=== PATIENT | male | born 1985 | race African-American/Black ===

== ENCOUNTER 2023-10-21 21:20 | Day surgery (SDC) | payer MEDICAID, SELFPAY ==
--- NOTE | 2023-10-21 21:29 | ED.GENADULT ---
HPI - General Adult General Time Seen by Provider: 21:29 Date Seen: 10/21/23 Chief complaint: Sore Throat Stated complaint: swollen glands, left ear pain Time Seen by Provider: 10/21/23 21:22 Source: patient, RN notes reviewed and old records reviewed Mode of arrival: ambulatory Limitations: no limitations History of Present Illness HPI narrative: 38-year-old male who comes in today with left throat pain and swollen glands in the neck for the last 3 days. Has been taking [id number] medication for this. Pain with swallowing, pain with opening the mouth and hoarse voice as well. Subjective fever and has had chills. No vomiting. Pain with swallowing but is able to swallow. Related Data Home Medications ?Medication ?Instructions ?Recorded ?Confirmed No Known Home Medications 10/21/23 10/21/23 Allergies Allergy/AdvReac Type Severity Reaction Status Date / Time No Known Drug Allergies Allergy Verified 10/21/23 22:42 Exam Narrative: Exam Narrative: General: Well-developed and well-nourished, no acute distress Head: Atraumatic and normocephalic Eyes: Pupils are equal reactive, extraocular motions intact, conjunctiva clear ENT: External nose and ears are normal, trismus, marked swelling of the left soft palate and tonsil with displacement of the uvula, hoarse voice Neck: No midline cervical tenderness, full spontaneous range of motion the neck, trachea midline, left anterior cervical adenopathy Heart: Regular rate and rhythm no murmurs or thrills Lungs: Clear to auscultation bilaterally without wheezes or crackles Abdomen: Soft, nontender, nondistended with active bowel sounds Musculoskeletal: No tenderness, deformity, or edema Neurologic: Awake, alert, and oriented x3, no gross focal neurologic deficits, cranial nerves intact as tested Psych: Mood and affect are appropriate Skin: No rashes Const: Vital Signs, click to edit/add: Vital Signs - 24 hr 10/21/23 21:30 Temperature 97.8 F Pulse Rate [Pulse Oximeter] 102 H Respiratory Rate 22 Blood Pressure [Ri ght Upper Arm] 133/85 Pulse Oximetry 97 Oxygen Delivery Me thod Room Air Course Course ED Course: Patient seen examined, no prior records available for review. Patient presents today with left-sided neck pain and throat pain along with subjective chills. On exam, borderline tachycardia, appears uncomfortable, winces with swallowing and is hoarse. No respiratory difficulty or stridor. Swelling of the left tonsil and soft palate, examined symptoms most consistent with peritonsillar abscess. Labs ordered along with CT scan of the neck, [place]. Did contact Dr. Valencia, ENT who will follow when CT is done Reevaluation(s) Time of Reevaluation #1: 22:45 Reevaluation #1: CT scan of the neck and panel interpreted by me demonstrates fluid collection but left tonsil with soft tissue edema tracking inferiorly. Care discussed with Dr. Valencia, patient will go to OR for drainage. Patient is low risk for anesthesia complications based on prior medical history and exam today. Time of Reevaluation #2: 23:01 Reevaluation #2: Labs ordered and independently interpreted by me with mild leukocytosis, reassuring basic panel. Vital Signs Vital signs: Initial Vital Signs Respiratory Effort Normal 10/21/23 21:29 Respiratory Depth Normal 10/21/23 21:29 Respiratory Pattern Normal 10/21/23 21:29 Vital Signs Temperature 97.8 F 10/21/23 21:30 Pulse Rate 102 H 10/21/23 21:30 Respiratory Rate 22 10/21/23 21:30 Blood Pressure 133/85 10/21/23 21:30 Pulse Oximetry 97 10/21/23 21:30 Oxygen Delivery Method Room Air 10/21/23 21:30 Temperature 97.8 F 10/21/23 21:30 Pulse Rate 102 H 10/21/23 21:30 Respiratory Rate 22 10/21/23 21:30 Blood Pressure 133/85 10/21/23 21:30 Pulse Oximetry 97 10/21/23 21:30 Oxygen Delivery Method Room Air 10/21/23 21:30 Medications Administered Medications: Discontinued Medications Generic Name Dose Route Start Last Admin Trade Name Freq PRN Reason Stop Dose Admin Dexamethasone 10 mg 10/21/23 21:39 10/21/23 22:16 Dexamethasone 10 Mg/Ml Inj IVP 10/21/23 21:40 10 mg ONCE ONE Administration Hydromorphone HCl 0.5 mg 10/21/23 21:59 10/21/23 22:16 Hydromorphone 0.5 Mg/0.5 Ml Inj IVP 10/21/23 22:00 0.5 mg ONCE ONE Administration Piperacillin Sod/Tazobactam 100 mls @ 100 mls/hr 10/21/23 21:39 10/21/23 22:33 Sod 3.375 gm/ Sodium Chloride IVPB 10/21/23 21:40 Not Given ONCE ONE Ampicillin Sodium/Sulbactam 100 mls @ 200 mls/hr 10/21/23 21:47 10/21/23 22:32 Sodium 3 gm/ Sodium Chloride IVPB 10/21/23 21:48 Infused ONCE ONE Infusion Sodium Chloride 1,000 mls @ 1,000 mls/hr 10/21/23 22:00 10/21/23 22:58 0.9 % Sodium Chloride 1000 Ml IV 10/21/23 22:59 Infused .Q1H LAKSHMI Infusion Medical Decision Making Lab Data Labs: Lab Results 10/21/23 Range/Units 21:49 WBC 11.34 H (4.50-11.00) K/uL RBC 5.16 (4.30-5.90) m/uL Hgb 16.4 (13.5-17.5) gm/dL Hct 48.9 (37.0-53.0) % MCV 95 (80-100) fL MCH 32 (26-34) pg MCHC 34 (32-36) gm/dL RDW Coeff of Andres 11.8 (11.5-15.5) % Plt Count 318 (140-440) K/uL Neut % (Auto) 77.9 H (42.0-72.0) % Lymph % (Auto) 11.6 L (20-44) % [place] % (Auto) 8.5 (0.0-11.0) % Eos % (Auto) 1.3 (0.0-7.0) % Baso % (Auto) 0.4 (0.0-3.0) % Neut # (Auto) 8.80 H (1.7-7.0) K/uL Lymph # (Auto) 1.30 (0.90-2.90) K/uL [place] # (Auto) 1.00 H (0.00-0.90) K/UL Eos # (Auto) 0.10 (0.00-0.50) K/uL Baso # (Auto) 0.00 (0.00-0.30) K/uL Abs Immat Gran (auto) 0.00 (0.00-0.30) K/uL Imm/Tot Granulo (auto) 0.3 % Sodium 134 L (135-149) mmol/L Potassium 3.9 (3.6-5.1) mmol/L Chloride 99 (96-114) mmol/L Carbon Dioxide 28 (20-32) mmol/L Anion Gap 7 (7-15) mEq/L BUN 4 L (5-24) mg/dL Creatinine 0.8 (0.5-1.5) mg/dL Estimated Creat Clear 134.65 Estimated GFR 117 ml/min Glucose 121 H (60-115) mg/dL Calcium 9.4 (8.4-10.6) mg/dL Discharge Plan Discharge Clinical Impression: Abscess, peritonsillar Patient Disposition: XFER to OR Follow Up/Referrals: Provider,Not a Local [Primary Care Provider] -
[2023-10-21 21:30] VITALS: BP 133/85; PULSE 102; RESP 22; TEMP 36.6; O2SAT 97; BMI 30.7
--- NOTE | 2023-10-21 21:37 | CRLHL7_ITS ---
For Patients: As a result of the Century Cures Act, medical imaging exams and procedure reports are released immediately into your electronic medical record. You may view this report before your referring provider. If you have questions, please contact your health care provider. Indication: Peritonsillar abscess Technique: CT of the neck following 80 mL Isovue 370 IV contrast. Comparison: None Findings: Brain and orbits: Visualized portions demonstrate no acute abnormality. Sinuses and mastoids: Visualized portions demonstrate no acute abnormality. Internal Medicine Physician spaces: No significant abnormality appreciated. Oral cavity, floor of mouth, and base of tongue: No significant abnormality appreciated. Pharynx: Enlargement of the left tonsillar pillar with a 2.2 x 1.1 centimeter fluid collection and adjacent soft tissue edema. Larynx/hypopharynx: No significant abnormality appreciated. Submandibular and parotid spaces: No significant abnormality appreciated. Thyroid space: No significant abnormality appreciated. Lymph nodes: Reactive lymphadenopathy. Vascular structures: No significant abnormality appreciated. Bones: No significant abnormality appreciated. Upper chest: No significant abnormality appreciated. Impression: Left tonsillitis with a 2.2 centimeter peritonsillar abscess. Please note that all CT scans at this facility use dose modulation, iterative reconstruction, and/or weight-based dosing when appropriate to reduce radiation dose to as low as reasonably achievable. Dictated by Chalino Rees MD @ 10/21/2023 11:00:18 PM (Electronically Signed)
[2023-10-21 22:07] LABS: Basophils Percent Auto 0.4 % (0.0-3.0); Eosinophils Percent Auto 1.3 % (0.0-7.0); Hematocrit 48.9 % (37.0-53.0); Hemoglobin* 16.4 gm/dL (13.5-17.5); Immature Granulocytes Pct Auto 0.3 %; Lymphocytes Percent Auto 11.6 % (20-44); Mean Corpuscular HGB Conc 34 gm/dL (32-36); Mean Corpuscular Hemoglobin 32 pg (26-34); Mean Corpuscular Volume 95 fL (80-100); Monocytes Percent Auto 8.5 % (0.0-11.0); Neutrophils Percent Auto 77.9 % (42.0-72.0); Platelet Count* 318 K/uL (140-440); RDW Coefficient of Variation % 11.8 % (11.5-15.5); Red Blood Count 5.16 m/uL (4.30-5.90); White Blood Count* 11.34 K/uL (4.50-11.00)
[2023-10-21 22:11] LABS: Slide Review Reflex No
[2023-10-21] MEDS: HYDROmorphone 0.5 mg/0.5 ml inj IVP (22:16)
[2023-10-21] MEDS: dexAMETHasone 10 MG/ML inj IVP (22:16)
[2023-10-21] MEDS: 0.9 % SODIUM CHLORIDE 1000 ml 1,000 ML IV (22:16)
[2023-10-21] MEDS: AMPICILLIN/SULBACTAM 3 GM in 0.9 % SODIUM CHLORIDE Mini-bag 100 ML IVPB (22:16)
[2023-10-21 22:23] LABS: Chloride* 99 mmol/L (96-114)
[2023-10-21 22:24] LABS: Potassium* 3.9 mmol/L (3.6-5.1); Sodium* 134 mmol/L (135-149)
[2023-10-21 22:26] LABS: Creatinine* 0.8 mg/dL (0.5-1.5); Est. Creatinine Clearance* 134.65; Estimated Glomerular Filt Rate 117 ml/min
[2023-10-21 22:27] LABS: Anion Gap 7 mEq/L (7-15); Blood Urea Nitrogen* 4 mg/dL (5-24); Calcium* 9.4 mg/dL (8.4-10.6); Carbon Dioxide* 28 mmol/L (20-32); Glucose* 121 mg/dL (60-115)
[2023-10-21] MEDS: LACTATED RINGERS 1000 ML 1,000 ML 125 ML IV (23:26)
[2023-10-22] VITALS (16 sets, daily range): BP systolic 107–143; BP diastolic 54–100; PULSE 74–96; RESP 12–18; TEMP 36.5–36.7; O2SAT 94–100
--- NOTE | 2023-10-22 00:04 | P.ENTCN_ITS ---
HPI- ENT Consult Date of Consult Date Seen: 10/22/23 Patient: Other Consult date: 10/22/23 Requesting Physician: Other Primary Care Provider: Not a Local Provider Consult Narrative Reason for consult: Left peritonsillar abscess Narrative: Ye Reeves is a 38 year old male 3 day history of sore throat that has pr ogressed to odynophagia dysphagia and trismus. Was afebrile on presentation with mildly elevated white count. Meds Home Medications and Allergies Allergies Allergy/AdvReac Type Severity Reaction Status Date / Time No Known Drug Allergies Allergy Verified 10/21/23 22:42 Exam Narrative: Exam Narrative: Insert general muffled voice obvious pain with swallowing bulge left supra peritonsillar area hypopharynx larynx appear clear Const: Vital Signs, click to edit/add: Vital Signs - 24 hr 10/21/23 21:30 Temperature 97.8 F Pulse Rate [Pulse Oximeter] 102 H Respiratory Rate 22 Blood Pressure [Ri ght Upper Arm] 133/85 Pulse Oximetry 97 Oxygen Delivery Me thod Room Air Documenting provider has reviewed patient's vital signs: yes ENT-CN: Result Labs Labs: Short CBC 10/21/23 Range/Units 21:49 WBC 11.34 H (4.50-11.00) K/uL Hgb 16.4 (13.5-17.5) gm/dL Hct 48.9 (37.0-53.0) % Plt Count 318 (140-440) K/uL BMP 10/21/23 21:49 Sodium 134 L Potassium 3.9 Chloride 99 Carbon Dioxide 28 BUN 4 L Creatinine 0.8 Glucose 121 H Calcium 9.4 Assessment and Plan Assessment and plan (1) Abscess, peritonsillar: Status: Acute Plan Left peritonsillar abscess. Discussed options with patient of observation and IV medication antibiotics and steroids versus incision and drainage. I would favor incision and drainage based on size and repeated T of onset of abscess. Risks including recurrence anesthesia bleeding etc. were all reviewed. He understands wishes to proceed will schedule
--- NOTE | 2023-10-22 00:07 | W.PM.ENTPROC ---
Procedure Note Date of procedure: 10/22/23 Procedure: Preop diagnosis left peritonsillar abscess with patent airway, uvular hypertrophy Postoperative diagnosis same uvula is obviously involved with cellulitis Procedure incision drainage left peritonsillar abscess with amputation of lower 3rd of uvula to allow decompression Under general endotracheal anesthesia patient was prepped and draped usual fashion. The McIvor mouth gag was inserted the tongue retracted forward. The lower 3rd of the uvula was amputated to allow decompression. A needlepoint cautery was used to make an incision in the left supra tonsillar region. Dissection was carried down to the capsule. Blunt dissection was used to enter the abscess superiorly. Approximately 5 mL of pus was aspirated with suction and spontaneous exudate a mejia. This was cultured. The abscess cavity was irrigated. Bleeding was controlled with Coblation. The patient procedure well was taken recovery in satisfactory condition. Blood loss during procedure was approximately 25 mL or less. There were no complication Surgeon: Ti Valencia MD
--- NOTE | 2023-10-22 00:21 | P.ANES_ITS ---
Anesthesia Charges Start Date/Time Anesthesia Start Date: 10/22/23 Anesthesia Start Time: 23:45 Stop Date/Time Anesthesia Stop Date: 10/23/23 Anesthesia Stop Time: 00:17 Summary Emergency: RECREATION ATTENDANT
[2023-10-22] MEDS: OXYCODONE 1 MG/ML ORAL SOLN 5 MG PO (01:24)
[2023-10-22] MEDS: LACTATED RINGERS 1000 ML 1,000 ML 35 ML IV (01:26)
[2023-10-22] MEDS: IBUPROFEN 100 MG/5 ML SUSP 200 MG PO (02:16)
[2023-10-22] MEDS: 0.9 % SODIUM CHLORIDE 250 ml IV (04:15)
[2023-10-22] MEDS: AMPICILLIN/SULBACTAM 3 GM in 0.9 % SODIUM CHLORIDE Mini-bag 100 ML IVPB ×2 (04:19→09:57)
--- NOTE | 2023-10-22 12:18 | PC.NURSE ---
Discharge: Patient pleasant and cooperative, A&O. VSS, afebrile. SpO2 maintained above 90% on RA. Patient reports pain in his throat, declined PRN medication. IV removed with tip intact. Discharge instructions provided, all questions answered. Discharged to home at 1040.
== END 2023-10-22 10:40 | disposition home or self-care (01) ==
LOC: ED 23:04 → OR 23:11 → MEDSURG 10-22 01:09
PROVIDERS: Emergency Provider Family Medicine; Visit Provider Otolaryngology
PROC: 0C9PXZZ Drainage of Tonsils, External Approach (ICD-10-PCS; CPT 42700; principal; 2023-10-21 23:30)
DX: J36 Peritonsillar abscess (principal); K13.79 Other lesions of oral mucosa; R07.0 Pain in throat; R13.12 Dysphagia, oropharyngeal phase
CPT/HCPCS: 42140; 42700; 00170; 36415; 70491; 80048; 85025; 87070; 87075; 87076; 87186; 87205; 99140; 99284; 99285; A9270; J0295; J0330; J1100; J1170; J2250; J2405; J2704; J3010; J7030; J7050; J7120; Q9967

== ENCOUNTER 2024-01-04 21:25 | Observation (INO) | payer MEDICAID, SELFPAY ==
[2024-01-04 21:43] VITALS: BP 118/79; PULSE 94; RESP 20; TEMP 36.6; O2SAT 99
[2024-01-04 21:47] VITALS: O2SAT 97
--- NOTE | 2024-01-04 22:26 | ED_ITS ---
HPI - General Adult General Chief complaint: Sore Throat <Susana Dyson MD - Last Filed: 01/05/24 00:24> Stated complaint: Tonsil infection. <Susana Dyson MD - Last Filed: 01/05/24 00:24> Time Seen by Provider: 01/04/24 22:22 <Susana Dyson MD - Last Filed: 01/05/24 00:24> Source: patient <Susana Dyson MD - Last Filed: 01/05/24 00:24> Mode of arrival: ambulatory <Susana Dyson MD - Last Filed: 01/05/24 00:24> Limitations: no limitations <Susana Dyson MD - Last Filed: 01/05/24 00:24> History of Present Illness HPI narrative: 38-year-old male presenting today with sore throat and difficulty breathing. Patient states that he has had a sore throat for approximately 3 days and that yesterday he went to [facility] and was diagnosed with tonsillopharyngitis. 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 He comes in today with worsening pain in he feels like he is having a harder time breathing. He states that he has chills throughout the day, uncertain if he had an elevated temperature or not. He was able to eat earlier today. He denies any difficulty opening and closing his jaw. Patient has a history of peritonsillar abscess in October of this year that required drainage. <Susana Dyson MD - Last Filed: 01/05/24 00:24> Related Data Home medications: Home Medications ?Medication ?Instructions ?Recorded ?Confirmed No Known Home Medications 01/04/24 01/04/24 <Susana Dyson MD - Last Filed: 01/05/24 00:24> Allergies/adverse reactions: Allergies Allergy/AdvReac Type Severity Reaction Status Date / Time No Known Drug Allergies Allergy Verified 10/21/23 22:42 <Susana Dyson MD - Last Filed: 01/05/24 00:24> Review of Systems Status of ROS: Reports: 10 or more systems reviewed and unremarkable except as noted in History and below <Susana Dyson MD - Last Filed: 01/05/24 00:24> [facility] Social History: Social History service: No <Susana Dyson MD - Last Filed: 01/05/24 00:24> Exam Narrative: Exam Narrative: Well-nourished well-developed patient in no acute distress. Alert and oriented. Answers questions appropriately. Mood and affect are appropriate. Thoughts are goal oriented and rational. No tangential or magical thinking noted. Patient speaks in full sentences without needing to catch his breath. Voice sounds slightly congested but he is speaking and breathing without difficulty. HEENT: Normocephalic atraumatic. Pupils are equally round reactive to light. Extraocular muscles are intact. Conjunctivae are moist without any icterus noted. Moist mucous membranes. Posterior pharynx shows bilateral tonsillar swelling, uvula surgically absent. Neck is soft but tender on the left. Cardiovascular: Heart is regular rate and rhythm S1 and S2 are present without any murmurs. Lungs: Clear to auscultation bilaterally no wheezes rhonchi or rales are appreciated. Patient takes deep breaths without any discomfort. Skin: Well perfused, warm, dry, intact <Susana Dyson MD - Last Filed: 01/05/24 00:24> Const: Vital Signs, click to edit/add: Vital Signs - 24 hr 01/04/24 21:43 01/04/24 21:47 01/05/24 02:23 Temperature 97.9 F 97.9 F Pulse Rate [Pulse Oximeter] 94 86 Respiratory Rate 20 18 Blood Pressure [Ri ght Upper Arm] 118/79 109/73 Pulse Oximetry 99 97 96 Oxygen Delivery Me thod Room Air Room Air 01/05/24 04:27 Temperature 98.3 F Pulse Rate [Pulse Oximeter] 75 Respiratory Rate 16 Blood Pressure [Ri ght Upper Arm] 94/57 L Pulse Oximetry 99 Oxygen Delivery Me thod Room Air <Susana Dyson MD - Last Filed: 01/05/24 00:24> Vital Signs, click to edit/add: Vital Signs - 24 hr 01/04/24 21:43 01/04/24 21:47 01/05/24 02:23 Temperature 97.9 F 97.9 F Pulse Rate [Pulse Oximeter] 94 86 Respiratory Rate 20 18 Blood Pressure [Ri t Upper Arm] 118/79 109/73 Pulse Oximetry 99 97 96 Oxygen Delivery Me thod Room Air Room Air 01/05/24 04:27 Temperature 98.3 F Pulse Rate [Pulse Oximeter] 75 Respiratory Rate 16 Blood Pressure [Ri ght Upper Arm] 94/57 L Pulse Oximetry 99 Oxygen Delivery Me thod Room Air <Jasmina Maher MD - Last Filed: 01/05/24 07:34> Course Course ED Course: Reviewed the report from the CT that was done yesterday: 1. Findings most compatible with acute tonsillopharyngitis in the appropriate clinical setting. Notably, a 2.0 x 0.8 x 2.3 cm locule of fluid adjacent to the left palatine tonsil without significant rim enhancement, most compatible with phlegmon or developing abscess. No drainable abscess at this time. 2. Moderate narrowing of the oropharyngeal airway secondary to bilateral palatine tonsillar enlargement. 3. Bilateral cervical lymphadenopathy, worse on the left, likely reactive. IV was established and patient is given Unasyn and dexamethasone. At this time will start Unasyn q.6 hours. We will admit the patient for IV antibiotics. We will get an ENT consult in the morning. <Susana Dyson MD - Last Filed: 01/05/24 00:24> Reevaluation(s) Reevaluation #1: Dr. Valencia was updated by text. He will check in with the hospitalist. We now have nursing staff available and patient will be admitted for observation to the medical floor to continue Unasyn and medical management. No issues overnight. No airway compromise. - Dr. Maher <Jasmina Maher MD - Last Filed: 01/05/24 07:34> Vital Signs Vital signs: Initial Vital Signs Temperature 97.9 F 01/04/24 21:43 Temperature Source Temporal Artery Scan 01/04/24 21:43 Pulse Rate 94 01/04/24 21:43 Respiratory Rate 20 01/04/24 21:43 Blood Pressure 118/79 01/04/24 21:43 Blood Pressure Mean 92 01/04/24 21:43 Blood Pressure Position Sitting 01/04/24 21:43 Pulse Oximetry 99 01/04/24 21:43 Oxygen Delivery Method Room Air 01/04/24 21:43 Vital Signs Temperature 97.9 F 01/04/24 21:43 Pulse Rate 94 01/04/24 21:43 Respiratory Rate 20 01/04/24 21:43 Blood Pressure 118/79 01/04/24 21:43 Pulse Oximetry 99 01/04/24 21:43 Oxygen Delivery Method Room Air 01/04/24 21:43 Temperature 98.3 F 01/05/24 04:27 Pulse Rate 75 01/05/24 04:27 Respiratory Rate 16 01/05/24 04:27 Blood Pressure 94/57 L 01/05/24 04:27 Pulse Oximetry 99 01/05/24 04:27 Oxygen Delivery Method Room Air 01/05/24 04:27 <Susana Dyson MD - Last Filed: 01/05/24 00:24> Initial Vital Signs Temperature 97.9 F 01/04/24 21:43 Temperature Source Temporal Artery Scan 01/04/24 21:43 Pulse Rate 94 01/04/24 21:43 Respiratory Rate 20 01/04/24 21:43 Blood Pressure 118/79 01/04/24 21:43 Blood Pressure Mean 92 01/04/24 21:43 Blood Pressure Position Sitting 01/04/24 21:43 Pulse Oximetry 99 01/04/24 21:43 Oxygen Delivery Method Room Air 01/04/24 21:43 Vital Signs Temperature 97.9 F 01/04/24 21:43 Pulse Rate 94 01/04/24 21:43 Respiratory Rate 20 01/04/24 21:43 Blood Pressure 118/79 01/04/24 21:43 Pulse Oximetry 99 01/04/24 21:43 Oxygen Delivery Method Room Air 01/04/24 21:43 Temperature 98.3 F 01/05/24 04:27 Pulse Rate 75 01/05/24 04:27 Respiratory Rate 16 01/05/24 04:27 Blood Pressure 94/57 L 01/05/24 04:27 Pulse Oximetry 99 01/05/24 04:27 Oxygen Delivery Method Room Air 01/05/24 04:27 <Jasmina Maher MD - Last Filed: 01/05/24 07:34> Medications Administered Medications: Generic Name Dose Route Start Last Admin Trade Name Freq PRN Reason Stop Dose Admin Ampicillin Sodium/Sulbactam 100 mls @ 200 mls/hr 01/04/24 22:30 01/05/24 05:09 Sodium 3 gm/ Sodium Chloride IVPB Infused Q6H LAKSHMI Infusion Discontinued Medications Generic Name Dose Route Start Last Admin Trade Name Freq PRN Reason Stop Dose Admin Acetaminophen 1,000 mg 01/04/24 23:50 01/04/24 23:54 Acetaminophen 500 Mg Tablet PO 01/04/24 23:51 1,000 mg ONCE ONE Administration Dexamethasone 10 mg 01/04/24 22:24 01/04/24 23:02 Dexamethasone 4 Mg/Ml Vial IV 01/04/24 22:25 10 mg ONCE ONE Administration <Susana Dyson MD - Last Filed: 01/05/24 00:24> Generic Name Dose Route Start Last Admin Trade Name Freq PRN Reason Stop Dose Admin Ampicillin Sodium/Sulbactam 100 mls @ 200 mls/hr 01/04/24 22:30 01/05/24 05:09 Sodium 3 gm/ Sodium Chloride IVPB Infused Q6H LAKSHMI Infusion Discontinued Medications Generic Name Dose Route Start Last Admin Trade Name Freq PRN Reason Stop Dose Admin Acetaminophen 1,000 mg 01/04/24 23:50 01/04/24 23:54 Acetaminophen 500 Mg Tablet PO 01/04/24 23:51 1,000 mg ONCE ONE Administration Dexamethasone 10 mg 01/04/24 22:24 01/04/24 23:02 Dexamethasone 4 Mg/Ml Vial IV 01/04/24 22:25 10 mg ONCE ONE Administration <Jasmina Maher MD - Last Filed: 01/05/24 07:34> Medical Decision Making Lab Data Labs: Lab Results 01/04/24 Range/Units 23:00 WBC 11.42 H (4.50-11.00) K/uL RBC 5.05 (4.30-5.90) m/uL Hgb 15.7 (13.5-17.5) gm/dL Hct 46.3 (37.0-53.0) % MCV 92 (80-100) fL MCH 31 (26-34) pg MCHC 34 (32-36) gm/dL RDW Coeff of Andres 12.1 (11.5-15.5) % Plt Count 245 (140-440) K/uL Neut % (Auto) 72.8 H (42.0-72.0) % Lymph % (Auto) 16.3 L (20-44) % [place] % (Auto) 9.0 (0.0-11.0) % Eos % (Auto) 0.6 (0.0-7.0) % Baso % (Auto) 0.2 (0.0-3.0) % Neut # (Auto) 8.30 H (1.7-7.0) K/uL Lymph # (Auto) 1.90 (0.90-2.90) K/uL [place] # (Auto) 1.00 H (0.00-0.90) K/UL Eos # (Auto) 0.10 (0.00-0.50) K/uL Baso # (Auto) 0.00 (0.00-0.30) K/uL Abs Immat Gran (auto) 0.10 (0.00-0.30) K/uL Imm/Tot Granulo (auto) 1.1 % Sodium 137 (135-149) mmol/L Potassium 3.6 (3.6-5.1) mmol/L Chloride 100 (96-114) mmol/L Carbon Dioxide 28 (20-32) mmol/L Anion Gap 9 (7-15) mEq/L BUN 18 (5-24) mg/dL Creatinine 0.8 (0.5-1.5) mg/dL Estimated Creat Clear 134.65 Estimated GFR 117 ml/min Glucose 119 H (60-115) mg/dL Calcium 9.1 (8.4-10.6) mg/dL C-Reactive Protein 3.6 H (0.5-1.0) mg/dL SARS-CoV-2 (PCR) Negative SARS-CoV-2 (Negative) Monoscreen Negative (Negative) Influenza Type A (PCR) Negative PCR FLU A (Negative) Influenza Type B (PCR) Negative PCR FLU B (Negative) <Susana Dyson MD - Last Filed: 01/05/24 00:24> Lab Results 01/04/24 Range/Units 23:00 WBC 11.42 H (4.50-11.00) K/uL RBC 5.05 (4.30-5.90) m/uL Hgb 15.7 (13.5-17.5) gm/dL Hct 46.3 (37.0-53.0) % MCV 92 (80-100) fL MCH 31 (26-34) pg MCHC 34 (32-36) gm/dL RDW Coeff of Andres 12.1 (11.5-15.5) % Plt Count 245 (140-440) K/uL Neut % (Auto) 72.8 H (42.0-72.0) % Lymph % (Auto) 16.3 L (20-44) % [place] % (Auto) 9.0 (0.0-11.0) % Eos % (Auto) 0.6 (0.0-7.0) % Baso % (Auto) 0.2 (0.0-3.0) % Neut # (Auto) 8.30 H (1.7-7.0) K/uL Lymph # (Auto) 1.90 (0.90-2.90) K/uL [place] # (Auto) 1.00 H (0.00-0.90) K/UL Eos # (Auto) 0.10 (0.00-0.50) K/uL Baso # (Auto) 0.00 (0.00-0.30) K/uL Abs Immat Gran (auto) 0.10 (0.00-0.30) K/uL Imm/Tot Granulo (auto) 1.1 % Sodium 137 (135-149) mmol/L Potassium 3.6 (3.6-5.1) mmol/L Chloride 100 (96-114) mmol/L Carbon Dioxide 28 (20-32) mmol/L Anion Gap 9 (7-15) mEq/L BUN 18 (5-24) mg/dL Creatinine 0.8 (0.5-1.5) mg/dL Estimated Creat Clear 134.65 Estimated GFR 117 ml/min Glucose 119 H (60-115) mg/dL Calcium 9.1 (8.4-10.6) mg/dL C-Reactive Protein 3.6 H (0.5-1.0) mg/dL SARS-CoV-2 (PCR) Negative SARS-CoV-2 (Negative) Monoscreen Negative (Negative) Influenza Type A (PCR) Negative PCR FLU A (Negative) Influenza Type B (PCR) Negative PCR FLU B (Negative) <Jasmina Maher MD - Last Filed: 01/05/24 07:34> Discharge Plan Discharge Clinical Impression: Abscess, peritonsillar <Susana Dyson MD - Last Filed: 01/05/24 00:24> Patient Disposition: Admitted As Observation <Susana Dyson MD - Last Filed: 01/05/24 00:24> Condition: Stable <Susana Dyson MD - Last Filed: 01/05/24 00:24>
[2024-01-04] MEDS: AMPICILLIN/SULBACTAM 3 GM in 0.9 % SODIUM CHLORIDE Mini-bag 100 ML IVPB (23:01)
[2024-01-04] MEDS: dexAMETHasone 4 MG/ML VIAL 10 MG IV (23:02)
[2024-01-04 23:08] LABS: Basophils Percent Auto 0.2 % (0.0-3.0); Eosinophils Percent Auto 0.6 % (0.0-7.0); Hematocrit 46.3 % (37.0-53.0); Hemoglobin* 15.7 gm/dL (13.5-17.5); Immature Granulocytes Pct Auto 1.1 %; Lymphocytes Percent Auto 16.3 % (20-44); Mean Corpuscular HGB Conc 34 gm/dL (32-36); Mean Corpuscular Hemoglobin 31 pg (26-34); Mean Corpuscular Volume 92 fL (80-100); Neutrophils Percent Auto 72.8 % (42.0-72.0); Platelet Count* 245 K/uL (140-440); RDW Coefficient of Variation % 12.1 % (11.5-15.5); Red Blood Count 5.05 m/uL (4.30-5.90); White Blood Count* 11.42 K/uL (4.50-11.00)
[2024-01-04 23:10] LABS: Mono Screen* Negative (Negative)
[2024-01-04 23:13] LABS: Slide Review Reflex No
[2024-01-04 23:19] LABS: Chloride* 100 mmol/L (96-114); Potassium* 3.6 mmol/L (3.6-5.1); Sodium* 137 mmol/L (135-149)
[2024-01-04 23:22] LABS: Creatinine* 0.8 mg/dL (0.5-1.5); Est. Creatinine Clearance* 134.65; Estimated Glomerular Filt Rate 117 ml/min
[2024-01-04 23:23] LABS: Anion Gap 9 mEq/L (7-15); Blood Urea Nitrogen* 18 mg/dL (5-24); Calcium* 9.1 mg/dL (8.4-10.6); Carbon Dioxide* 28 mmol/L (20-32); Glucose* 119 mg/dL (60-115)
[2024-01-04 23:26] LABS: C Reactive Protein* 3.6 mg/dL (0.5-1.0)
[2024-01-04 23:44] LABS: PCR FLU A Negative PCR FLU A (Negative); PCR FLU B Negative PCR FLU B (Negative); SARS PCR* Negative SARS-CoV-2 (Negative)
[2024-01-04] MEDS: ACETAMINOPHEN 500 MG TABLET 1000 MG PO (23:54)
[2024-01-05] VITALS (9 sets, daily range): BP systolic 94–120; BP diastolic 57–86; PULSE 68–86; RESP 14–20; TEMP 36.5–36.9; O2SAT 96–100; BMI 18.7
[2024-01-05] MEDS: AMPICILLIN/SULBACTAM 3 GM in 0.9 % SODIUM CHLORIDE Mini-bag 100 ML IVPB ×4 (04:40→22:41)
--- NOTE | 2024-01-05 05:03 | PC.NURSE ---
Pt states he is feeling much better compared to when he first came in, eating jello in bed.
--- NOTE | 2024-01-05 07:45 | ED.NURSE ---
Patient asleep on cot, rousable to voice. VSS. Patient denies needs at present. Significant other at bedside. Understand plan for admission, no questions/concerns.
--- NOTE | 2024-01-05 07:50 | ED.NURSE ---
Report to [facility]. Patient accepted to [id number].
[2024-01-05] MEDS: SODIUM CHLORIDE 0.9 % (FLUSH) 10 ML SYRINGE 5 ML IVF ×2 (10:14→22:41)
--- NOTE | 2024-01-05 15:19 | P.IMHP_ITS ---
Hospitalist- H&P: HPI History of Present Illness Date Seen: 01/05/24 Chief complaint: Tonsil infection. Narrative: Ye Reeves is a 38 year old male admitted to the hospital with recurrent left peritonsillar abscess. Patient reports developing a sore throat a couple days ago. He went to [facility] in [place] where he was diagnosed with an early peritonsillar abscess and received IV antibiotics and a prescription for clindamycin and Medrol Dosepak. It was not felt to be a drainable abscess at that time. He he did not fill the prescription for antibiotic and presented to our emergency room last night with worsening throat pain. It has been painful to swallow. Last night he felt like he was choking because of his sore throat. He otherwise reports feeling well. October of 2023 he had a similar problem in the left tonsil. He underwent I&D with Dr. Valencia at that time. He got better after that until 2 days ago. Review of Systems Narrative: Other than his sore throat he reports doing well. [facility] Medical History (Updated 01/05/24 @ 15:24 by Abel Mccoy MD) Abscess, peritonsillar ?J36 - Peritonsillar abscess (ICD-10) Surgical History (Updated 01/05/24 @ 15:28 by Abel Mccoy MD) H/O peritonsillar abscess drainage ?Z98.890 - Other specified postprocedural states (ICD-10) Social History (Updated 01/05/24 @ 15:29 by Abel Mccoy MD) Narrative: He lives in [place] with his partner. He does not smoke. He occasionally drinks alcohol. No recreational drug use. What is your current living situation?: I presently have a place to live Problems where you live: no known problems Problems where you live details: none In the past 12 months, utilities in danger of being shut off: no In past 12 months, lack of transportation kept you from medical appts, meetings, work, or getting things needed for daily living: no In the past 12 mos, have been you worried that your food would run out before you had money to buy more?: never true In the past 12 mos, the food you bought just didn't last and you didn't have money to buy more?: never true Highest level of school completed/degree received: Associate degree: academic program Smoking Status: Former smoker How often do you have a drink containing alcohol: 2-3 times a week Alcohol type: hard liquor How many standard drinks containing alcohol do you have on a typical day: 1 or 2 How often do you have six or more drinks on one occasion: Less than monthly AUDIT-C Alcohol total score: 4 Non-prescribed substance use: denies use Caffeine: Yes How often does anyone, including family, friends and others, physically hurt you : never How often does anyone, including family, friends and others, insult or talk down to you: never How often does anyone, including family, friends and others, threaten you with harm: never How often does anyone, including family, friends and others, scream or curse at you: never service: No Meds Home Medications and Allergies Home Medications ?Medication ?Instructions ?Recorded ?Confirmed ?Type No Known Home Medications 01/04/24 01/04/24 History Allergies Allergy/AdvReac Type Severity Reaction Status Date / Time No Known Drug Allergies Allergy Verified 10/21/23 22:42 Exam Narrative: Exam Narrative: He is alert and appears in no distress. He gives his own history. Eyes normal. Left pinna external canal and TM normal. Oropharynx without trismus. He opens his mouth well without marked discomfort. Prominent left tonsil extends to the midline. Smaller right tonsil. Patent airway. Some erythema and exudate on the left. Neck is supple. There is no stridor. He has a tender enlarged anterior cervical lymph node on the left. Respirations are clear to auscultation. Breathing is unlabored. Cardiovascular: S1, S2, regular rate and rhythm. No murmur gallop or rub. Abdomen: Bowel sounds active. Abdomen is soft without tenderness or mass. No edema. He moves all 4 extremities well. No rash. Const: Vital Signs, click to edit/add: Vital Signs - 24 hr 01/04/24 21:43 01/04/24 21:47 01/05/24 02:23 Temperature 97.9 F 97.9 F Pulse Rate [Left P ulse Oximeter] Pulse Rate [Pulse Oximeter] 94 86 Respiratory Rate 20 18 Blood Pressure [Le ft Arm] Blood Pressure [Ri ght Upper Arm] 118/79 109/73 Pulse Oximetry 99 97 96 Oxygen Delivery Me thod Room Air Room Air 01/05/24 04:27 01/05/24 07:50 01/05/24 09:15 Temperature 98.3 F 97.8 F 98.1 F Pulse Rate [Left P ulse Oximeter] 69 Pulse Rate [Pulse Oximeter] 75 74 Respiratory Rate 16 14 18 Blood Pressure [Le ft Arm] 108/86 Blood Pressure [Ri ght Upper Arm] 94/57 L 110/66 Pulse Oximetry 99 98 97 Oxygen Delivery Me thod Room Air Room Air Room Air 01/05/24 10:29 01/05/24 11:29 Temperature 97.7 F Pulse Rate [Left P ulse Oximeter] 81 Pulse Rate [Pulse Oximeter] Respiratory Rate 18 18 Blood Pressure [Le ft Arm] 110/63 Blood Pressure [Ri ght Upper Arm] Pulse Oximetry 97 98 Oxygen Delivery Me thod Room Air Room Air Documenting provider has reviewed patient's vital signs: yes Hospitalist - H&P: Result Labs Labs: Short CBC 01/04/24 Range/Units 23:00 WBC 11.42 H (4.50-11.00) K/uL Hgb 15.7 (13.5-17.5) gm/dL Hct 46.3 (37.0-53.0) % Plt Count 245 (140-440) K/uL BMP 01/04/24 23:00 Sodium 137 Potassium 3.6 Chloride 100 Carbon Dioxide 28 BUN 18 Creatinine 0.8 Glucose 119 H Calcium 9.1 Assessment and Plan Assessment and plan (1) Abscess, peritonsillar: Problem comment: Recurrent left peritonsillar abscess. Initiate medical management. Outpatient follow-up with ENT for possible tonsillectomy Status: Acute Plan Reviewed plan of care with Dr. Valencia. Patient is currently doing quite well so we will continue medical management with IV antibiotics and monitoring airway and swallowing. Initially inpatient with Unasyn and outpatient antibiotics with follow-up with Dr. Valencia. Possible tonsillectomy as an outpatient. Total Time Spent Total Time Spent: Total time spent is 60 minutes in evaluation and management, coordination of care and discussing with patient and other providers plan of care
[2024-01-05] MEDS: guaiFENesin 100 MG/ML CUP PO (20:38)
[2024-01-05] MEDS: BENZOCAINE/MENTHOL 1 EACH LOZENGE MUCOUS MEM (20:38)
[2024-01-05] MEDS: ACETAMINOPHEN 325 MG TABLET 650 MG PO (23:31)
[2024-01-06 04:20] VITALS: BP 136/67; PULSE 78; RESP 20; TEMP 36.6; O2SAT 97
[2024-01-06] MEDS: MORPHINE 2 MG/ML inj IVP (04:36)
[2024-01-06] MEDS: AMPICILLIN/SULBACTAM 3 GM in 0.9 % SODIUM CHLORIDE Mini-bag 100 ML IVPB ×2 (04:37→10:45)
--- NOTE | 2024-01-06 05:13 | PC.NURSE ---
SHIFT NOTE 19-: Pt pleasant, A&O. VSS on room air. Pt given PRN Tylenol and PRN Morphine x1 with pt reporting adequate relief. Pt denies SOB, CP, and N/V. Up independent, tolerating well.
[2024-01-06 06:43] LABS: Basophils Absolute Auto 0.03 K/uL (0.00-0.30); Basophils Percent Auto 0.4 % (0.0-3.0); Eosinophils Absolute Auto 0.13 K/uL (0.00-0.50); Eosinophils Percent Auto 1.5 % (0.0-7.0); Hematocrit 43.7 % (37.0-53.0); Hemoglobin* 14.6 gm/dL (13.5-17.5); Immature Granulocytes Abs Auto 0.06 K/uL (0.00-0.30); Immature Granulocytes Pct Auto 0.7 %; Lymphocytes Absolute Auto 2.32 K/uL (0.90-2.90); Lymphocytes Percent Auto 27.6 % (20-44); Mean Corpuscular HGB Conc 33 gm/dL (32-36); Mean Corpuscular Hemoglobin 31 pg (26-34); Mean Corpuscular Volume 92 fL (80-100); Monocytes Percent Auto 6.8 % (0.0-11.0); Platelet Count* 243 K/uL (140-440); RDW Coefficient of Variation % 12.1 % (11.5-15.5); Red Blood Count 4.74 m/uL (4.30-5.90); White Blood Count* 8.41 K/uL (4.50-11.00)
[2024-01-06 07:01] LABS: C Reactive Protein* 2.2 mg/dL (0.5-1.0)
[2024-01-06 07:24] LABS: Slide Review Reflex No
--- NOTE | 2024-01-06 11:31 | PM.DS1 ---
DS: Providers Provider Date Seen: 01/06/24 Date of admission: 01/05/24 07:56 Primary care physician: Not a Local Provider Admitting Clinician: Abel Mccoy MD Attending Physician on discharge: Abel Mccoy MD Date of Discharge: 01/06/24 DS: Diagnosis Discharge Diagnosis (1) Abscess, peritonsillar: Status: Acute Problem details: Recurrent left peritonsillar abscess. Initiate medical management. Outpatient follow-up with ENT for possible tonsillectomy DS: Summary Hospital Course Hospital Course: Ye Reeves is a 38 year old male admitted to the hospital with recurrent left peritonsillar abscess. Patient reports developing a sore throat a couple days ago. He went to [facility] in [place] where he was diagnosed with an early peritonsillar abscess and received IV antibiotics and a prescription for clindamycin and Medrol Dosepak. It was not felt to be a drainable abscess at that time. He he did not fill the prescription for antibiotic and presented to our emergency room last night with worsening throat pain. It has been painful to swallow. Last night he felt like he was choking because of his sore throat. He otherwise reports feeling well. October of 2023 he had a similar problem in the left tonsil. He underwent I&D with Dr. Valencia at that time. He got better after that until 2 days ago. Patient reports feeling better today. He is able to swallow. He does not feel like he is having any airway problems. Time Spent with Patient Time attestation: Total time spent providing and/or coordinating discharge services: 35 minutes Time spent: Greater than 30 minutes Exam Narrative: Exam Narrative: He is alert appears in no distress. Voice is normal. Oropharynx is notable for enlargement of the left tonsil without significant erythema. He has and enlarged tender cervical node on the left. He airway is patent. No trismus. Const: Vital Signs, click to edit/add: Vital Signs - 24 hr 01/05/24 15:00 01/05/24 15:00 01/05/24 19:00 Temperature 97.7 F 97.8 F Pulse Rate [Left P ulse Oximeter] 68 68 84 Respiratory Rate 18 18 18 Blood Pressure [Le ft Arm] 105/68 102/72 Pulse Oximetry 99 99 Oxygen Delivery Me thod Room Air Room Air 01/05/24 23:00 01/05/24 23:00 01/06/24 04:20 Temperature 98.5 F 97.8 F Pulse Rate [Left P ulse Oximeter] 80 80 78 Respiratory Rate 20 20 20 Blood Pressure [Le ft Arm] 120/74 136/67 Pulse Oximetry 100 97 Oxygen Delivery Me thod Room Air Room Air Documenting provider has reviewed patient's vital signs: yes DS: Data Data Completed and Pending Labs on day of discharge: Labs from last 24 hours 01/06/24 06:28 WBC 8.41 RBC 4.74 Hgb 14.6 Hct 43.7 MCV 92 MCH 31 MCHC 33 RDW Coeff of Andres 12.1 Plt Count 243 Neut % (Auto) 63.0 Lymph % (Auto) 27.6 [place] % (Auto) 6.8 Eos % (Auto) 1.5 Baso % (Auto) 0.4 Neut # (Auto) 5.30 Lymph # (Auto) 2.32 [place] # (Auto) 0.60 Eos # (Auto) 0.13 Baso # (Auto) 0.03 Abs Immat Gran (auto) 0.06 Imm/Tot Granulo (auto) 0.7 C-Reactive Protein 2.[address] soft tissue neck: Radiologist's impression: Indication: Peritonsillar abscess Technique: CT of the neck following 80 mL Isovue 370 IV contrast. Comparison: None Findings: Brain and orbits: Visualized portions demonstrate no acute abnormality. Sinuses and mastoids: Visualized portions demonstrate no acute abnormality. Car Jockey spaces: No significant abnormality appreciated. Oral cavity, floor of mouth, and base of tongue: No significant abnormality appreciated. Pharynx: Enlargement of the left tonsillar pillar with a 2.2 x 1.1 centimeter fluid collection and adjacent soft tissue edema. Larynx/hypopharynx: No significant abnormality appreciated. Submandibular and parotid spaces: No significant abnormality appreciated. Thyroid space: No significant abnormality appreciated. Lymph nodes: Reactive lymphadenopathy. Vascular structures: No significant abnormality appreciated. Bones: No significant abnormality appreciated. Upper chest: No significant abnormality appreciated. Impression: Left tonsillitis with a 2.2 centimeter peritonsillar abscess. Discharge Plan Discharge Disposition: Home, Self-Care Date of Admission: 01/05/24 07:56 Attending Provider on Discharge: Abel Mccoy Primary Care Provider: Provider,Not a Local Condition: Stable Anticipated Discharge Date/Time: 01/06/24 12:00 Discharge Medications: New amoxicillin-pot clavulanate 875-125 mg tablet 1 tab PO BID Qty: 14 0RF Discharge Orders: Discharge Order (Routine); Ordered 01/06/24 Ordered By: Abel Mccoy Patient Education: Amoxicillin/Clavulanate Potassium (By mouth), Peritonsillar Abscess (DC) Additional Instructions: Return to the emergency room if you are getting worse with more throat pain, trouble swallowing, fever Activity Level: Activity as Tolerated Discharge Diet: Regular Follow Up Appointments: [facility] [Outside] - 01/15/24 1:45 pm ([facility] for follow-up with Dr. Valencia.) Provider,Not a Local [Primary Care Provider] - Forms: Bounce Exchange Info Instructions
== END 2024-01-06 12:40 | disposition home or self-care (01) ==
LOC: ED 01-05 00:24 → MEDSURG 01-05 07:56
PROVIDERS: Admitting Provider Family Medicine; Emergency Provider Family Medicine; Visit Provider Family Medicine
DX: J36 Peritonsillar abscess (principal); R59.0 Localized enlarged lymph nodes; Z87.891 Personal history of nicotine dependence; Z87.09 Personal history of other diseases of the respiratory system; Z98.890 Other specified postprocedural states
CPT/HCPCS: 36415; 80048; 85025; 86140; 86308; 87631; 94761; 99284; 99285; A9270; G0378; J0295; J1100; J2270